=== PATIENT | female | born 1950 | race Caucasian/White ===

== ENCOUNTER 2016-04-26 18:16 | Emergency (ER) | payer OTHER ==
[~2016-04-26] VITALS: Ht 152.4 cm; Wt 76.7 kg
[2016-04-26 19:01] VITALS: BP 175/81
--- NOTE | 2016-04-26 20:02 | ED GENERAL ADULT ---
History of Present Illness General Chief Complaint: Palpitations Stated Complaint: NAUSEA PALPATATIONS Source: patient Exam Limitations: no limitations Vital Signs & Intake/Output Vital Signs & Intake/Output Vital Signs Date Time Temp Pulse Resp B/P Pulse O2 O2 Flow FiO2 Ox Delivery Rate 04/26 1901 97.6 84 18 175/81 94 Room Air Allergies Coded Allergies: Sulfa (Sulfonamide Antibiotics) (Intermediate, RASH 04/26/16) Uncoded Allergies: PCN (Intermediate, RASH 04/26/16) Allergy Other N Food Allergies NKA Med Allergies PCN SULFA Reconcile Medications Nystatin 100,000 UNIT/ML ORAL.SUSP 5 ML PO 4 TIMES/DAY oral thrush Triage Note: C/O PALPITATONS WITH NAUSEA, SORE THROAT, SWOLLEN LEGS SINCE YESTERDAY. DENIES CHEST PAIN OR SOB, EKG DONE ON ARRIVAL. PMH; KIDNEY FAILURE. IS ON TRANSPLANT LIST AT [facility]. Triage Nurses Notes Reviewed? yes Onset: Abrupt Duration: day(s): Timing: recent history Injury Environment: home No Modifying Factors: none HPI: 65-year-old female comes into emergency room for further evaluation of feeling like her lips are mildly swollen and a sore throat and her neck feels swollen. Patient reports that she was diagnosed with thrush a few weeks back and took medication for that. Patient reports that she was just started on Coumadin and another medication for days ago. Patient had a Holter monitor done as an outpatient had some runs of a flutter so her doctor started her on Coumadin. Patient denies any chest pain or shortness of breath or palpitations currently. Patient has chronic swelling in her lower legs secondary to chronic kidney disease. Denies any other symptoms currently. (SHANNON ANDERSEN) Past History Travel History Traveled to [place] past 21 day No Medical History Any Pertinent Medical History? see below for history Neurological: NONE Cardiovascular: hypertension Renal: STAGE 4 RENAL DISEASE Endocrine: diabetes Surgical History Surgical History: non-contributory Psychosocial History What is your primary language Greek Tobacco Use: Current Daily Use Daily Tobacco Use Amount/Type: => 5 Cigarettes daily ETOH Use: denies use Family History Hx Contributory? No (SHANNON ANDERSEN) Review of Systems Review of Systems Constitutional: Reports: no symptoms. EENTM: Reports: no symptoms. Respiratory: Reports: no symptoms. Cardiovascular: Reports: no symptoms. GI: Reports: see HPI. Genitourinary: Reports: no symptoms. Musculoskeletal: Reports: no symptoms. Skin: Reports: no symptoms. Neurological/Psychological: Reports: no symptoms. Hematologic/Endocrine: Reports: no symptoms. Immunologic/Allergic: Reports: no symptoms. All Other Systems: Reviewed and Negative (SHANNON ANDERSEN) Physical Exam Physical Exam General Appearance: well developed/nourished, no apparent distress, alert Head: atraumatic, normal appearance Eyes: Bilateral: normal appearance, EOMI. Ears, Nose, Throat: normal pharynx, normal ENT inspection Neck: normal inspection Respiratory: normal breath sounds, no respiratory distress Cardiovascular: regular rate/rhythm Rectal: normal exam Back: normal inspection Extremities: normal inspection, normal range of motion Neurologic/Psych: awake, alert, oriented x 3, normal gait Skin: intact, normal color Core Measures ACS in differential dx? No CVA/TIA Diagnosis: No Severe Sepsis Present: No Septic Shock Present: No (SHANNON ANDERSEN) Progress Differential Diagnoses I considered the following diagnoses in my evaluation of the patient: [oral thrush, allergic reaction, strep throat, afib, [place] Plan of Care: Orders Procedure Date/time Status EKG 04/26 1817 Active Laboratory Tests 04/26/16 1931: [id number] Pept Cancelled, CBC w Diff Cancelled, WBC Cancelled, RBC Cancelled, Hgb Cancelled, Hct Cancelled, MCV Cancelled, MCH Cancelled, RDW Cancelled, Plt Count Cancelled, MPV Cancelled, PUBS MCHC Cancelled Initial ED EKG: normal intervals, normal p-waves, normal sinus rhythm, rate (66) (SHANNON ANDERSEN) Departure Departure Disposition: HOME OR SELF CARE Condition: Stable Clinical Impression Primary Impression: Oral thrush Referrals: YOU LINDSEY MD (PCP/Family) Additional Instructions: Take nystatin swish and swallow as prescribed. Follow-up with your primary care doctor. Return to the emergency room immediately if any other concerns worsening symptoms. Please go over all results of today's visit with your primary care doctor. Contact your primary care doctor to let them know you were here in the emergency room. There may be nonspecific findings which may not be related to your visit today here in the emergency room but may require further evaluation and chronic monitoring by your primary care doctor. If you had a laceration today the chance of foreign body always remains. You should follow-up with your primary care doctor for recheck in 3-5 days for a wound check. If you had an x-ray done there is a chance that a fracture could have been missed on initial read and you should follow-up with your primary care doctor for repeat x-rays if symptoms persist. If your blood pressure was elevated here in the emergency room please have rechecked by her primary care doctor within the next 48 hours by your primary care doctor. If you were prescribed a narcotic here in the emergency room or any type of controlled substances you're not allowed to drive while taking this medication or operate any type of heavy machinery. Narcotics can make you feel lightheaded dizziness nausea and can cause constipation. You may need to slate picker a stool softener. Thank you for choosing [facility] emergency room. Please return to the emergency room immediately if you have any other concerns worsening of symptoms. Departure Forms: Customer Survey General Discharge Information Prescriptions: Current Visit Scripts Nystatin 5 ML PO 4 TIMES/DAY #200 ML (SHANNON ANDERSEN) PA/PROCESS ARTIST Co-Sign Statement Statement: ED Attending supervision documentation- [x] I saw and evaluated the patient. I have also reviewed all the pertinent lab results and diagnostic results. I agree with the findings and the plan of care as documented in the PA's/PROCESS ARTIST's documentation. [] I have reviewed the ED Record and agree with the PA's/PROCESS ARTIST's documentation. [] Additions or exceptions (if any) to the PAs/PROCESS ARTIST's note and plan are summarized below: [] (JACK CONTRERAS DO) Critical Care Note Critical Care Note Critical Care Time: non-applicable (SHANNON ANDERSEN)
[2016-04-26] MEDS ORDERED: NYSTATIN100000 UNI PO (20:03)
== END 2016-04-26 20:20 ==
LOC: ERH 18:16
DX: B37.0 Candidal stomatitis (principal); Z79.01 Long term (current) use of anticoagulants
CPT/HCPCS: 93005; 93010

== ENCOUNTER 2017-05-12 16:07 | Emergency (ER) | payer OTHER, MEDICARE ==
[~2017-05-12] VITALS: Ht 152.4 cm; Wt 61.2 kg
[~2017-05-12 16:07] MED LIST: AMLODIPINE BESY10 M1 PO; ATORVASTATIN CA40 M1 PO; CALCITRIOL0.25 MC1 PO; CARVEDILOL25 M1 PO; COUMADIN1 M1 PO; D3 + K2 DOTS 11 EACH PO; FAMOTIDINE20 M1 PO; HYDRALAZINE HC100 M1 PO; HYDRALAZINE HCL50 M1 PO; LASIX40 M1 PO; LEXAPRO5 M1 PO; METOPROLOL TART25 M1 PO; NYSTATIN100000 UNI PO; PROCRIT2000 UNIT/; SODIUM BICARBO650 M1 PO
[2017-05-12 17:16] LABS: ABSOLUTE BASOPHIL COUNT 0.1 /CUMM (0.0-0.2); ABSOLUTE EOSINOPHIL COUNT 0.4 /CUMM (0.0-0.7); ABSOLUTE GRANULOCYTE CT 5.3 /CUMM (1.4-6.5); ABSOLUTE LYMPH COUNT 0.9 /CUMM (1.2-3.4); ABSOLUTE MONOCYTE COUNT 0.6 /CUMM (0.10-0.60); BASOPHIL % 0.7 % (0.0-2.0); EOSINOPHIL % 4.9 % (0-5); GRANULOCYTE % 72.8 % (42.2-75.2); HEMATOCRIT 21.3 % (37-47); MEAN CORPUSCULAR HGB 28.1 PG (27.0-31.0); MEAN CORPUSCULAR HGB CONC 31.7 G/DL (33.0-37.0); MEAN CORPUSCULAR VOLUME 88.5 FL (81.0-99.0); MEAN PLATELET VOLUME 7.8 FL (7.4-10.4); PLATELET COUNT 250 /CUMM (130-400); RED BLOOD CELL CT 2.41 /CUMM (4.20-5.40); WHITE BLOOD CELL COUNT 7.2 /CUMM (4.8-10.8)
[2017-05-12 17:26] LABS: PT 31.4 SEC (9.4-12.5); PTT 47 SEC (25-37)
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
--- NOTE | 2017-05-12 18:56 | RADIOLOGY REPORT ---
EXAMINATION: XR CHEST PORTABLE CLINICAL INFORMATION: Shortness of breath. COMPARISON: Chest radiography 02/13/2017. TECHNIQUE: Portable frontal view of the chest was obtained. FINDINGS: The lungs are well expanded. There is mild blunting of the bilateral costophrenic angles with adjacent parenchymal opacification. No overt pulmonary edema. No pneumothorax. Mediastinal contours are unchanged. Borderline enlargement of the cardiac contour. Aortic atherosclerotic calcification. No acute osseous abnormalities. IMPRESSION: Small bilateral pleural effusions and adjacent basilar opacification.
[2017-05-13 01:31] VITALS: BP 175/79
== END 2017-05-13 02:09 ==
LOC: ERH 16:07
PROVIDERS: Emergency Medicine
DX: D64.9 Anemia, unspecified (principal); N18.9 Chronic kidney disease, unspecified; Z79.01 Long term (current) use of anticoagulants
CPT/HCPCS: 71045; 86920; 93005; 93010; 96365; 96366; P9016